=== PATIENT | female | born 1960 | race Caucasian/White ===

== ENCOUNTER 2017-06-23 18:40 | Inpatient (IN) | payer BC ==
[~2017-06-23] VITALS: Ht 175.3 cm; Wt 70.3 kg
--- NOTE | ~2017-06-23 | PA ---
Unit #: [id number] #: [id number] Patient: SHERYL GARCIA [id number] [place] [address] [id number] I MR#: [id number] NAME: SHERYL GARCIA ROOM: P204 Age: 56 Sex: F Admission Date: 06/24/2017 : 1960 Date of Assessment: 06/24/2017 Attending Physician: Shahram Odom M.D. Admitting Physician: Shahram Odom M.D. Primary Care Physician: Generic Doctor Not In System PSYCHIATRIC ASSESSMENT DATE OF SERVICE 06/24/2017. IDENTIFYING DATA Ms. Garcia is a 56-year-old, , white female, who is a resident of [place], [place], and was brought to the hospital by her boyfriend. CHIEF COMPLAINT "I've a problem and it has been going on for the last 9 months." HISTORY OF PRESENT ILLNESS Ms. Garcia is a 56-year-old white female, who was brought to the hospital with a history of benzodiazepine abuse and reports that she has been prescribed Klonopin for the last 6 weeks despite her addictive behavior and history of alcohol and cocaine abuse and the patient stated that she was compliant initially for 2 weeks and was compliant at 0.5 mg t.i.d. and she has been using up to 1 mg t.i.d. and noted that she was having balance issues and her vision was affected and she went back to the 0.5 mg, but she was not getting the effectiveness of the 1 mg dose and she went into her therapist last week and boyfriend confronted the patient's impaired behavior and took Klonopin today from her however, as the patient has been taking more than prescribed and the patient stated that she took 5 to 6 mg of Klonopin today and stated that she took 3 whole ones and 4 half ones. Boyfriend reports for the last 6 weeks or so, she has a noticeable difference in her speech and balance, but she states she has been falling asleep at the table and she has been sleeping until noon and that is not normal for her and she will not answer her telephone, will not respond to messages and it has gotten really bad, particularly with her erratic behavior. She has been hateful, angry and even sometimes verbally abusive, and she has been falling asleep in the middle of the day on the kitchen table and has had a bruise, which was several inches long down her back and a bruise on her right hip and the patient has been previously vigilant and was working on a 12 step program until she was prescribed Klonopin, which was despite her history of addictive behavior, and it appears that she has been going to her physician name, Dr. Donato Crockett in [place], [place], and has been getting her prescriptions of Klonopin and abusing them and it is not clear if the physician knew about her addictive history before prescribing her Klonopin and her significant impairment and falls and bruising despite ongoing prescriptions of Klonopin; however, the patient was seen to be a significant threat to herself due to her continuing addiction to benzodiazepines as well as impaired breathing as she is on concentrated oxygen and therefore, recommendation for hospitalization for detox was made and the patient was Unit #: [id number] #: [id number] Patient: SHERYL GARCIA transferred to us. SUBSTANCE ABUSE HISTORY The patient reports history of alcohol, cannabis, cocaine, acid abuse in the past, and currently benzodiazepines has been her drug of choice. PAST PSYCHIATRIC HISTORY The patient has had a history of multiple chemical dependency treatments over the years as she has been to [facility] in [place], at [facility] and a facility in [place], and has had outpatient treatment as well and review of the medical records indicate that she has been diagnosed and treated for mood disorder and has been getting Klonopin from her primary care physician. PAST MEDICAL HISTORY The patient's medical history is significant for COPD and dyslipidemia. ALLERGIES Bactrim and sulfa drugs. PERSONAL AND SOCIAL HISTORY A 56-year-old white female, who reports that she is and lives at home with her boyfriend and has fairly decent social support system. MENTAL STATUS EXAMINATION Middle-aged white female, who was casually dressed with fair personal hygiene, appears to be in no acute distress or discomfort. She was awake and alert on interaction with intact orientation to time, place, and person. Her mood was anxious and depressed with a congruent affect. Speech was slow and restricted in content. Her thought processes were disorganized with some looseness of associations. She denies any suicidal or homicidal ideations and also denies any auditory or visual hallucinations. Her insight and judgment remain significantly impaired. DIAGNOSTIC IMPRESSION Psychiatric: Benzodiazepine dependence, moderate and acute withdrawals; benzodiazepine-induced mood disorder. Medical: Chronic obstructive pulmonary disease. Stressors: Moderate psychosocial stressors. TREATMENT PLAN 1. The patient has presented with a history of substance abuse and mood disorder, and has been decompensating and will need inpatient hospitalization for safety and stabilization. We will start her back on her home medications. We will also initiate benzodiazepine detox protocol. 2. Supportive therapy was provided to the patient. 3. Safe, structured, and nourishing environment will be provided. ESTIMATED LENGTH OF STAY 5 to 7 days. ABILITY TO HELP SELF Limited. WILLINGNESS TO HELP SELF The patient appears to be willing to help self. Unit #: [id number] #: [id number] Patient: SHERYL GARCIA 1. Communicative. 2. Cooperative. PROBLEMS 1. Chronic dysphoric symptoms. 2. Poor social support system. DISCHARGE CRITERIA This will be contingent upon the patient's ability to go through detox without having any significant withdrawal symptoms and her ability to stay safe to herself, particularly after discharge from the hospital. Dictated by... Shahram Odom M.D. LEEANNA/kyree TD: 06/24/2017 07:36 JOB #: [id number] PSYCHIATRIC ASSESSMENT Page 1 of 1 X Shahram Odom MD PSYCHIATRIC ASSESSMENT
--- NOTE | ~2017-06-23 | DS ---
Unit #: [id number] #: [id number] Patient: SHERYL GARCIA [id number] [facility] [address] [place] [address] [id number] I MR#: [id number] NAME: SHERYL GARCIA. ROOM: P204 Age: 56 Sex: F Admission Date: 06/24/2017 : 1960 Discharge Date: 06/27/2017 Attending Physician: Shahram Odom M.D. Primary Care Physician: Generic Doctor Not In System DISCHARGE SUMMARY IDENTIFYING DATA Ms. Garcia is a 56-year-old white female, with substance abuse and dependence and was self-referred to the hospital. HISTORY OF PRESENT ILLNESS Please see initial psychiatric evaluation for details. PAST PSYCHIATRIC HISTORY Please see initial psychiatric evaluation for details. PAST MEDICAL HISTORY Please see initial psychiatric evaluation for details. HOSPITAL COURSE The patient was admitted to the Adult Chemical Dependency Unit at [facility] and was oriented to the hospital environment. Routine p.r.n. medications were initiated and she was started back on her home medications and the medications were adjusted and she was closely monitored. The patient was taking the medications and tolerating them fairly well and able to show a fairly decent therapeutic response, and was able to come out of the detox without any complications, and was willing to continue treatment on outpatient basis. DISCHARGE DIAGNOSES PSYCHIATRIC: Gwinner I Alcohol dependence, moderate, and acute withdrawal. Benzodiazepine dependence, moderate. And acute withdrawal. Alcohol-induced mood disorder. Gwinner II Gwinner III COPD. Migraine headaches. Obstructive sleep apnea. Osteoporosis. Gwinner IV Mild psychosocial stressors. Gwinner V CONDITION AT DISCHARGE Stable. PROGNOSIS Fair. Unit #: [id number] #: [id number] Patient: SHERYL GARCIA Dictated by... Mak Gleason/osmany TD: 07/08/2017 12:20 JOB #: [id number] DISCHARGE SUMMARY Page 1 of 1 X Shahram Odom MD DISCHARGE SUMMARY
--- NOTE | ~2017-06-23 | A ---
[facility] Nutrition Therapy DATE: 06/24/17 Patient: SHERYL GARCIA Physician: COLE Address: [address] [place] [address] Room/Bed: [address], Zip: [place] [phone] Admit Date: 06/24/17 Date of : [birth year] Height: 5 9 Weight: [phone] NUTRITIONAL ASSESSMENT: REASON: UNINTENTIONAL WEIGHT LOSS PATIENT ADMITTED FOR KLONOPIN DETOX PMH: COPD, DYSLIPIDEMIA Anthropometrics: HT: 69", WT: 155#, BMI: 22.9, %IBW: 107% Labs: 06/24/17- BUN: 8, ALL OTHER NUTRITIONAL LABS WNL Meds: MELATONIN, VIT D, OS BRIA + VIT D, EFFEXOR XR, VISTARIL, DETOX PROTOCOL Assessment: PATIENT IS A 56 Y/O FEMALE ADMITTED FOR KLONOPIN DETOX. PATIENT IS CURRENTLY RETIRED, LIVES ALONE, AND SHE RELAPSED AFTER PCP PRESCRIBED HER KLONOPIN. SHE HAS A HX OF ETOH ABUSE. IT IS NOTED THAT PATIENT HAS BEEN NON-COMPLIANT WITH HER MEDICATIONS PRIOR TO ADMIT AND SHE HAS A HX OF INPATIENT CHEMICAL DEPENDENCY TREATMENT. UPON ADMIT PATIENT STATED A GOOD APPETITE WITH A 12# WEIGHT LOSS OVER LAST SEVERAL MONTHS, AND SHE HAS BEEN SLEEPING AN AVG OF 14 HOURS/NIGHT. CURRENT PO INTAKES ARE UNAVAILABLE D/T PATIENT ADMITTED TO FACILITY TODAY. [facility] PATIENT IS ON A REGULAR DIET WITH NO CAFFEINE. SHE DOES HAVE BRUISING NOTED D/T A FALL PRIOR TO ADMIT, WITH NO FURTHER SKIN BREAKDOWN OR GI ISSUES NOTED ATT. CURRENT PSYCH MEDS MAY CAUSE WEIGHT AND APPETITE FLUCTUATIONS. THIS RD SUSPECTS PATIENT'S WEIGHT WILL STABILIZE AND POSSIBLY INCREASE FOLLOWING DETOX. Dx: UNINTENTIONAL WEIGHT LOSS R/T CURRENT CONDITION, DETOX AEB SELF-REPORTED WEIGHT LOSS, NUTRITIONAL RISK POINT Intervention: REGULAR DIET, NO CAFFEINE, MEDS PER MD, DETOX, PSYCH Monitoring, Evaluation and Goals: 1. ADEQUATE PO INTAKES >50% OF MEALS 2. PREVENT, CORRECT MICRO/MACRO NUTRIENT DEFICIENCIES 3. WEIGHT; MAINTAIN CURRENT WEIGHT, PREVENT FURTHER WEIGHT LOSS MONITOR: WEIGHTS, LABS, PO/FLUID INTAKES Recommendations: 1. CONTINUE REGULAR DIET WITH NO CAFFEINE TOLERATED. OFFER SNACKS BETWEEN MEALS 2. ENCOURAGE ADEQUATE PO AND FLUID INTAKES [facility] Nutrition Therapy DATE: 06/24/17 Patient: SHERYL GARCIA Physician: COLE Address: [address] [place] [address] Room/Bed: [address], Zip: [place] [address] Admit Date: 06/24/17 Date of : [birth year] Height: 5 9 Weight: [phone] 3. OBTAIN WEIGHTS ROUTINELY (EVERY 3-4 DAYS) 4. IF PO INTAKES ARE BELOW 50% OF MEALS PLEASE ORDER ENSURE BID TO PROMOTE ADEQUATE KCAL AND PROTEIN INTAKES RD TO F/U PER PROTOCOL AND PRN R/T PATIENT MILDLY COMPROMISED Respectfully, SAUNDRA LANGSTON, FRIEDA, LD [employer] [facility] cc: client file
--- NOTE | ~2017-06-23 | PN ---
Unit #: [id number] #: [id number] Patient: SHERYL GARCIA [id number] [facility] [address] [place] [address] [id number] I MR#: [id number] NAME: SHERYL GARCIA ROOM: P204 Age: 56 Sex: F Admission Date: 06/24/2017 : 1960 Attending Physician: Shahram Odom M.D. Admitting Physician: Shahram Odom M.D. Primary Care Physician: Generic Doctor Not In System [facility] PROGRESS NOTES DATE OF SERVICE 06/26/2017 DISCUSSION Ms. Garcia is a 56-year-old white female who was seen today. Chart was reviewed and case was discussed with the staff. She has been anxious, withdrawn, and rather seclusive to herself. Meanwhile, she has been cooperative with the treatment recommendations and has been taking the medications and tolerating them fairly well with no reported side effects. MENTAL STATUS EXAMINATION Middle-aged white female who is casually dressed with fair personal hygiene, appears to be in no acute distress or discomfort. She was awake and alert with intact orientation. Her mood is anxious with congruent affect. She denies any suicidal or homicidal ideations. Her insight and judgment remain slightly impaired. TREATMENT PLAN 1. We will continue her on her current treatment protocol. We will monitor her response and make further adjustments as needed. 2. We will continue to follow up. Dictated by... Shahram Odom M.D. IAA/bzg TD: 06/26/2017 11:39 JOB #: [id number] [facility] PROGRESS NOTES Page 1 of 1 X Shahram Odom MD PROGRESS NOTE
--- NOTE | ~2017-06-23 | HP ---
Unit #: [id number] #: [id number] Patient: BARBI GARCIA [id number] [place] [address] [id number] I MR#: [id number] NAME: BARBI GARCIA. ROOM: P204 Age: 56 Sex: F Admission Date: 06/24/2017 : 1960 Attending Physician: Shahram Odom M.D. Admitting Physician: Shahram Odom M.D. Primary Care Physician: Generic Doctor Not In System HISTORY AND PHYSICAL HISTORY OF PRESENT ILLNESS Barbi is a 56 year old admitted to [address] [place] [address] because of her abuse of benzodiazepines. She is detoxing. PAST MEDICAL HISTORY 1. History of illicit substance abuse to include benzodiazepines. 2. History of alcohol abuse. She has been sober for many years. 3. COPD. 4. History of migraines. 5. Alpha 1 antitrypsin deficiency. 6. Obstructive sleep apnea. 7. Osteoporosis. 8. GERD. PAST SURGICAL HISTORY Partial parathyroidectomy. ALLERGIES Sulfa. SOCIAL HISTORY Smoked greater than one pack per day for many years, quit 15 years ago. She has a history of alcohol abuse but has been sober for "many years". She denies illicit drug use although she does admit to using/abusing benzodiazepines for many years. FAMILY HISTORY Medically noncontributory. REVIEW OF SYSTEMS CONSTITUTIONAL: No fever or chills. HEENT: Denies any sore throat, ear pain or runny nose. CARDIOVASCULAR: Denies chest pain, irregular heart rhythm or palpitations. CHEST: Denies shortness of breath or cough. No hemoptysis. GASTROINTESTINAL: Denies nausea, vomiting, diarrhea or chronic constipation. ENDOCRINE: Denies history of increased thirst or urination. No recent significant weight loss or gain. GENITOURINARY: Denies dysuria, frequency, or hematuria. SKIN: Denies any rashes. HEMATOLOGIC: Denies history of increased bleeding or bruising. MUSCULOSKELETAL: Denies any hot, swollen joints. No generalized muscle Unit #: [id number] #: [id number] Patient: BARBI GARCIA pain. NEUROLOGIC: Denies problems with vision or speech. No frequent, severe headaches. No numbness, tingling or weakness in any extremities. Denies loss of bladder or bowel control. CURRENT MEDICATIONS 1. Detox protocol 2. Singulair 10 mg q day 3. Colace 100 mg b.i.d. 4. Nicorette gum p.r.n. 5. Ibuprofen p.r.n. 6. Melatonin 6 mg q.h.s. p.r.n. 7. Symbicort 2 puffs b.i.d. 8. Claritin 10 mg q day 9. Flonase nasal spray q day 10. Effexor XR 150 mg q day 11. multivitamin 1 q day 12. Imitrex p.r.n. PHYSICAL EXAMINATION GENERAL: Alert, well-nourished, in no apparent distress. VITAL SIGNS: Blood pressure 117/66, heart rate 78, respirations 16, temperature 98.6. WEIGHT: 155 pounds. HEIGHT: 5'9". SKIN: Warm and dry without rash or lesion. HEENT: Normocephalic. TMs not viewed. Oral and nasal passages clear. Conjunctivae clear. Pupils equal, round and reactive to light and accommodation. Extraocular movements intact. NECK: Supple without lymphadenopathy or thyromegaly. HEART: Regular rate and rhythm without murmur. LUNGS: Clear. ABDOMEN: Soft, nontender. : Not done. EXTREMITIES: No evidence of cyanosis, clubbing or edema. Moves all extremities without focal deficit. NEUROLOGICAL: Grossly within normal limits. Cranial Nerves: II: Visual osorio are intact. III, IV AND : Extraocular movements are intact. Pupils are equal, round and reactive to light. V: Facial sensation is grossly normal. VII: Facial movements and expression are normal. VIII: Auditory acuity grossly intact. IX, X: Uvula is midline. Phonation is normal. XI: Patient shrugs shoulders and turns head normally. XII: Tongue protrudes in the midline. Sensory and Motor Function: Sensory and motor sensation is grossly normal. Motor: moves all extremities well. Coordination: Gait is normal. Deep Tendon Reflexes: Intact. IMPRESSION Psychiatric admission. RECOMMENDATIONS PSYCHIATRIC: Per psychiatrist. MEDICAL: 1. I see no contraindications to participating in facility's activities. 2. The patient does use oxygen, 2 liters per nasal cannula. This will be available to her during this admission. Pulse ox on room air was Unit #: [id number] #: [id number] Patient: ABRBI GARCIA 92%. MEDICAL PROGNOSIS Good. MEDICAL CONDITION Stable. Dictated by... Hansa Keyes P.A.-C. for Mak Carrera/durga TD: 06/24/2017 23:58 JOB #: [id number] HISTORY AND PHYSICAL Page 1 of 1 X Hansa Keyes X HISTORY AND PHYSICAL
--- NOTE | ~2017-06-23 | PN ---
Unit #: [id number] #: [id number] Patient: SHERYL GARCIA [id number] [facility] [address] [place] [address] [id number] I MR#: [id number] NAME: SHERYL GARCIA ROOM: P204 Age: 56 Sex: F Admission Date: 06/24/2017 : 1960 Attending Physician: Shahram Odom M.D. Admitting Physician: Shahram Odom M.D. Primary Care Physician: Generic Doctor Not In System [facility] PROGRESS NOTES DATE OF SERVICE 06/25/2017 DISCUSSION Ms. Garcia is a 56-year-old white female with a history of benzodiazepine dependence who was seen today. Chart was reviewed and case was discussed with the staff. The patient has been anxious, withdrawn, and rather seclusive to herself though appears to be in distress or discomfort as she is detoxing. Meanwhile, she has been taking the medications and tolerating them fairly well with no reported side effects. MENTAL STATUS EXAMINATION Middle-aged white female who is casually dressed with fair personal hygiene, appears to be in no acute distress or discomfort. She was awake and alert with intact orientation. Her mood is anxious with congruent affect. She denies any suicidal or homicidal ideations. Her insight and judgment remain slightly impaired. TREATMENT PLAN 1. We will continue her on her current medications and detox protocol. We will monitor her response and make further adjustments as needed. 2. We will continue to follow up. Dictated by... Shahram Odom M.D. IAA/bzg TD: 06/25/2017 11:38 JOB #: [id number] [facility] PROGRESS NOTES Page 1 of 1 X Shahram Odom MD X PROGRESS NOTE
[2017-06-24 09:50] LABS: BASOPHIL# 0.1 X10e3 (0-0.3); BASOPHIL% 0.7 % (0-2.5); EOSINOPHIL# 0.5 X10e3 (0-0.7); EOSINOPHIL% 6.6 % (0.0-7.0); HEMATOCRIT 44.1 % (35.0-45.0); HEMOGLOBIN 14.5 gm/dL (12.0-16.0); LYMPHOCYTE# 2.7 X10e3 (1.0-3.5); LYMPHOCYTE% 33.5 % (17.0-45.0); MEAN CELL VOLUME 86.5 FL (83-96); MEAN CORPUSCULAR HEMOGLOBIN 28.4 PG (28-34); MEAN CORPUSCULAR HGB CONC 32.8 g/dL (30-36); MEAN PLATELET VOLUME 7.8 FL (6.5-11.5); MONOCYTE# 0.6 X10e3 (0-1.0); MONOCYTE% 7.1 % (3.0-12.0); NEUTROPHIL# 4.2 X10e3 (1.5-7.1); NEUTROPHIL% 52.1 % (40-75); PLATELET COUNT 267 X10e3 (140-420); RED CELL DISTRIBUTION WIDTH 13.6 % (11.0-15.5)
[2017-06-24 09:51] LABS: DIFF IND NO
[2017-06-24 10:10] LABS: ALBUMIN SERUM 4.4 g/dL (3.5-5.0); BILIRUBIN,TOTAL 0.6 mg/dL (0.2-2.0); BUN/CREATININE RATIO 11.42; CALCIUM SERUM 9.7 mg/dL (8.4-10.2); CREATININE SERUM 0.7 mg/dL (0.6-1.4); GLOM FILT RATE Estimated 96.2 mL/min (>60); POTASSIUM 4.4 mmol/L (3.5-5.1); PROTEIN TOTAL SERUM 6.7 g/dL (6.0-8.3)
[2017-06-25 09:45] LABS: URINE APPEARANCE CLEAR; URINE BILIRUBIN NEG (NEG); URINE BLOOD NEG (NEG); URINE COLOR YELLOW; URINE GLUCOSE NORM (NORM); URINE KETONE NEG (NEG); URINE LEUKOCYTE ESTERASE 2+ (NEG); URINE NITRATE NEG (NEG); URINE PROTEIN NEG (NEG); URINE SPECIFIC GRAVITY 1.005 (1.003-1.035); URINE UROBILINOGEN NORM (NORM)
[2017-06-25 09:47] LABS: AMPHETAMINE NEG (NEG); BARBITURATES NEG (NEG); BENZODIAZEPINES POS (NEG); COCAINE NEG (NEG); MARIJUANA NEG (NEG); OPIATES NEG (NEG); TRICYCLIC ANTIDEPRESSANTS NEG (NEG); U METHADONE NEG (NEG)
[2017-06-25 09:59] LABS: URINE BACTERIA AUWI NEG (NEGATIVE); URINE SQUAMOUS EPITHELIAL CELL NONE SEEN /[HPF]; UWBCS1 AUWI 0-2 (0-5)
== END 2017-06-27 13:08 | disposition home or self-care (01) | DRG 897 ==
LOC: P2S 06-24 00:05
PROVIDERS: Psychiatry & Neurology Psychiatry
PROC: HZ2ZZZZ Detoxification Services for Substance Abuse Treatment (ICD-10-PCS; principal; 2017-06-24)
DX: F13.239 Sedative, hypnotic or anxiolytic dependence with withdrawal, unspecified (principal); E88.01 Alpha-1-antitrypsin deficiency; F13.24 Sedative, hypnotic or anxiolytic dependence with sedative, hypnotic or anxiolytic-induced mood disorder; J44.9 Chronic obstructive pulmonary disease, unspecified; G47.33 Obstructive sleep apnea (adult) (pediatric); K21.9 Gastro-esophageal reflux disease without esophagitis; M81.0 Age-related osteoporosis without current pathological fracture; Z88.2 Allergy status to sulfonamides; Z87.891 Personal history of nicotine dependence
CPT/HCPCS: 80053; 80307; 81003; 85025; 86592